=== PATIENT | male | born 1930 | race Caucasian/White ===

== ENCOUNTER 2017-06-03 19:54 | Inpatient (IN) | payer OTHER ==
[2017-06-03] MEDS: AZITHROMYCIN 250 MG TAB PO (21:37)
[2017-06-03] MEDS: SOD CHLORIDE 0.9% 500 ML IV (21:37)
[2017-06-03] MEDS: CEFTRIAXONE 1 GM/50 ML (PMX) 50 ML IVPB (21:37)
[2017-06-03 21:43] LABS: ADD MAN DIFF? NO
[2017-06-03 21:47] LABS: ABNORMAL IP MESSAGE 1; BASOPHIL # 0.1 10^3/ul (0.0-0.1); BASOPHILS % 0.3 % (0.0-2.0); HEMATOCRIT 30.7 % (42.0-52.0); HEMOGLOBIN 10.7 g/dl (14.0-18.0); LYMPHOCYTES # 0.5 10^3/ul (0.8-2.9); LYMPHOCYTES % 2.7 % (15.0-51.0); MEAN CORPUSCULAR HEMOGLOBIN 29.5 pg (29.0-33.0); MEAN CORPUSCULAR HGB CONC 34.9 g/dl (32.0-37.0); MEAN CORPUSCULAR VOLUME 84.6 fl (82.0-101.0); MEAN PLATELET VOLUME 11.1 fl (7.4-10.4); MONOCYTE # 1.5 10^3/ul (0.3-0.9); MONOCYTES % 8.5 % (0.0-11.0); NEUTROPHIL # 15.4 10^3/ul (1.6-7.5); NEUTROPHILS % 87.8 % (39.0-77.0); PLATELET COUNT 191 10^3/UL (140-415); POSITIVE DIFF @See below; RED BLOOD COUNT 3.63 10^6/ul (4.70-6.10); RED CELL DISTRIBUTION WIDTH 13.5 % (11.5-14.5)
[2017-06-03 21:47] LABS: WHITE BLOOD COUNT 17.5 10^3/ul (4.8-10.8)
[2017-06-03 22:08] LABS: INR 1.27; PROTIME 16.1 Sec (11.9-14.9); PT RATIO 1.3
[2017-06-03 22:09] LABS: PARTIAL THROMBOPLASTIN TIME 36.7 Sec (25.0-35.0)
[2017-06-03 22:17] LABS: LACTIC ACID 1.3 mmol/L (0.5-2.0)
[2017-06-03 22:20] LABS: ANION GAP 12 (8-16); BLOOD UREA NITROGEN 40 mg/dl (7-20); CALCIUM 9.1 mg/dl (8.4-10.2); CARBON DIOXIDE 27 mmol/L (21-31); CHLORIDE 93 mmol/L (97-110); CREATININE 1.57 mg/dl (0.61-1.24); GLUCOSE 164 mg/dl (70-220); POTASSIUM 4.2 mmol/L (3.5-5.1); SODIUM 128 mmol/L (135-144)
[2017-06-03 22:30] LABS: B-TYPE NATRIURETIC PEPTIDE 4520 PG/ML (0-450)
[2017-06-03 22:39] LABS: TROPONIN-I 0.168 ng/ml (0.00-0.12)
[2017-06-03] MEDS: SODIUM CHLORIDE 0.9% 1L BAG IV* (22:59)
[2017-06-03] MEDS ORDERED: ASPIRIN 81 MG TAB (23:14)
[2017-06-03] MEDS: ASPIRIN 81 MG TAB PO (23:32)
[2017-06-04 00:13] LABS: BAND NEUTROPHILS #M 1.2 10^3/ul (0.0-0.6); BAND NEUTROPHILS % (M) 7 % (0-4); EOSINOPHILS % (M) 1 % (0-7); GIANT THROMBO% (M) 1 % (0-0); LYMPHOCYTES #M 0.3 10^3/ul (0.8-2.9); LYMPHOCYTES % (M) 2 % (15-51); MONOCYTE #M 0.5 10^3/ul (0.3-0.9); MONOCYTES % (M) 3 % (0-11); PLATELET ESTIMATE NORMAL; SEG NEUT #M 15.4 10^3/ul (1.7-7.5); SEGMENTED NEUTROPHILS (M) % 87 % (39-77); SMUDGE%M 1 % (0-0)
[2017-06-04 00:26] LABS: LACTIC ACID 1.7 mmol/L (0.5-2.0)
[2017-06-04] MEDS ORDERED: ACETAMINOPHEN 325 MG TAB PO (00:30)
[2017-06-04] MEDS ORDERED: ONDANSETRON 4 MG INJ IV (00:30)
[2017-06-04 02:56] LABS: LACTIC ACID 1.2 mmol/L (0.5-2.0)
[2017-06-04] MEDS ORDERED: ALBUTEROL/IPRATROPIUM (NEB) 3 ML AMP NEB ×3 (04:00→05:00)
[2017-06-04] MEDS ORDERED: ALPRAZOLAM 0.25 MG TAB PO (04:00)
[2017-06-04] MEDS ORDERED: IPRATROPIUM (NEB) 0.5 MG/2.5 ML AMP NEB (05:00)
[2017-06-04 05:27] LABS: ADD MAN DIFF? NO
[2017-06-04] MEDS: MAGNESIUM SULFATE 2 GM/50 ML 50 ML IVPB (05:31)
[2017-06-04] MEDS: BUMETANIDE 1 MG INJ IV (05:31)
[2017-06-04] MEDS: GUAIFENESIN/CODEINE 5ML CUP PO (05:32)
[2017-06-04 05:33] LABS: WHITE BLOOD COUNT 17.4 10^3/ul (4.8-10.8)
[2017-06-04 05:33] LABS: ABNORMAL IP MESSAGE 1; BASOPHILS % 0.2 % (0.0-2.0); HEMATOCRIT 31.7 % (42.0-52.0); HEMOGLOBIN 10.5 g/dl (14.0-18.0); LYMPHOCYTES # 0.5 10^3/ul (0.8-2.9); MEAN CORPUSCULAR HEMOGLOBIN 28.7 pg (29.0-33.0); MEAN CORPUSCULAR HGB CONC 33.1 g/dl (32.0-37.0); MEAN CORPUSCULAR VOLUME 86.6 fl (82.0-101.0); MEAN PLATELET VOLUME 11.4 fl (7.4-10.4); MONOCYTE # 1.5 10^3/ul (0.3-0.9); MONOCYTES % 8.9 % (0.0-11.0); NEUTROPHIL # 15.1 10^3/ul (1.6-7.5); NEUTROPHILS % 87.3 % (39.0-77.0); PLATELET COUNT 201 10^3/UL (140-415); POSITIVE DIFF @See below; RED BLOOD COUNT 3.66 10^6/ul (4.70-6.10); RED CELL DISTRIBUTION WIDTH 13.3 % (11.5-14.5)
[2017-06-04] MEDS: ALBUTEROL/IPRATROPIUM (NEB) 3 ML AMP NEB ×3 (05:44→16:07)
[2017-06-04] MEDS: PANTOPRAZOLE (EC) 40 MG TAB PO (06:00)
[2017-06-04] MEDS ORDERED: BUMETANIDE 0.5 MG TAB PO ×2 (06:00)
[2017-06-04] MEDS: ACCU-CHEK XX ×3 (07:25→17:20)
[2017-06-04] MEDS ORDERED: INSULIN ASPART [NOVOLOG] 3 ML PEN SC (07:55)
[2017-06-04] MEDS: FLUTICASONE 0.05% 16 GM NAS SPRAY NASAL (08:20)
[2017-06-04] MEDS: ASPIRIN 81 MG TAB PO (08:21)
[2017-06-04] MEDS: CYANOCOBALAMIN 500 MCG TAB PO (08:21)
[2017-06-04] MEDS: CALCIUM CARBONATE 500 MG CHEW TAB PO ×3 (08:21→17:21)
[2017-06-04] MEDS: DONEPEZIL 10 MG TAB PO (08:21)
[2017-06-04] MEDS: CHOLECALCIFEROL 2,000 UNIT CAP PO (08:21)
[2017-06-04] MEDS: BENAZEPRIL 40 MG TAB PO (08:22)
[2017-06-04] MEDS: ISOSORBIDE MONONITRATE(SR)30 MG TAB PO (08:22)
[2017-06-04] MEDS: LACTOBACILLUS RHAMNOSUS CAP PO ×2 (08:22→21:33)
[2017-06-04] MEDS: INSULIN ASPART [NOVOLOG] 3 ML PEN SC ×3 (08:30→17:26)
[2017-06-04] MEDS: Insulin NOVOLOG SS MILD Algorithm (SS with meals and bedtime) SC ×4 (08:30→21:00)
[2017-06-04] MEDS: INSULIN GLARGINE [LANtus] 3 ML PEN SC (08:30)
[2017-06-04] MEDS ORDERED: DOCUSATE SODIUM 100 MG CAP PO (09:00)
[2017-06-04] MEDS ORDERED: SALMETEROL/FLUTICASONE 250/50 INHA INH (09:00)
[2017-06-04 10:35] LABS: TROPONIN-I 0.106 ng/ml (0.00-0.12)
[2017-06-04] MEDS ORDERED: ALBUTEROL/IPRATROPIUM (NEB) 3 ML AMP HHN (12:00)
[2017-06-04] MEDS: Discontinue current oral sulfonylureas (glyburide, glipizide, and/or glimepiride) prior to XX (12:30)
[2017-06-04 12:48] LABS: CREATINE KINASE 204 IU/L (23-200)
[2017-06-04 14:18] LABS: ANION GAP 14 (8-16); BLOOD UREA NITROGEN 43 mg/dl (7-20); CALCIUM 8.7 mg/dl (8.4-10.2); CARBON DIOXIDE 21 mmol/L (21-31); CHLORIDE 97 mmol/L (97-110); CREATININE 1.45 mg/dl (0.61-1.24); GLUCOSE 247 mg/dl (70-220); MAGNESIUM 2.2 mg/dl (1.7-2.5); POTASSIUM 4.1 mmol/L (3.5-5.1); SODIUM 128 mmol/L (135-144)
[2017-06-04] MEDS: HEPARIN 5,000 UNIT/0.5 ML VIAL SC ×2 (14:50→21:43)
[2017-06-04] MEDS: ATORVASTATIN 20 MG TAB PO (21:31)
[2017-06-04] MEDS: MONTELUKAST 10 MG TAB PO (21:32)
[2017-06-04] MEDS: TERAZOSIN 5 MG CAP PO (21:33)
[2017-06-04] MEDS: CEFTRIAXONE 1 GM/50 ML (PMX) 50 ML IVPB (21:34)
[2017-06-04] MEDS: SERTRALINE 50 MG TAB PO (21:34)
[2017-06-04] MEDS: traZODone 50 MG TAB PO (21:43)
[2017-06-04] MEDS: AZITHROMYCIN 500MG/NS (PMX) 250 ML IV (22:31)
[2017-06-05] MEDS: ALBUTEROL/IPRATROPIUM (NEB) 3 ML AMP NEB ×4 (01:35→23:26)
[2017-06-05] MEDS: ACCU-CHEK XX ×4 (02:00→17:23)
[2017-06-05] MEDS ORDERED: ACCUCHECK AT 2AM (Patients on SS coverage) XX (02:00)
[2017-06-05] MEDS: PANTOPRAZOLE (EC) 40 MG TAB PO (05:18)
[2017-06-05] MEDS: HEPARIN 5,000 UNIT/0.5 ML VIAL SC ×3 (05:21→21:29)
[2017-06-05 06:19] LABS: ADD MAN DIFF? NO
[2017-06-05 06:27] LABS: ABNORMAL IP MESSAGE 1; BASOPHIL # 0.1 10^3/ul (0.0-0.1); BASOPHILS % 0.3 % (0.0-2.0); EOSINOPHILS % 0.2 % (0.0-7.0); HEMATOCRIT 29.9 % (42.0-52.0); HEMOGLOBIN 10.3 g/dl (14.0-18.0); LYMPHOCYTES # 0.7 10^3/ul (0.8-2.9); LYMPHOCYTES % 3.6 % (15.0-51.0); MEAN CORPUSCULAR HEMOGLOBIN 29.4 pg (29.0-33.0); MEAN CORPUSCULAR HGB CONC 34.4 g/dl (32.0-37.0); MEAN CORPUSCULAR VOLUME 85.4 fl (82.0-101.0); MEAN PLATELET VOLUME 11.4 fl (7.4-10.4); MONOCYTE # 1.6 10^3/ul (0.3-0.9); MONOCYTES % 8.7 % (0.0-11.0); NEUTROPHIL # 15.7 10^3/ul (1.6-7.5); NEUTROPHILS % 85.8 % (39.0-77.0); PLATELET COUNT 209 10^3/UL (140-415); POSITIVE DIFF @See below; RED CELL DISTRIBUTION WIDTH 13.6 % (11.5-14.5)
[2017-06-05 06:27] LABS: WHITE BLOOD COUNT 18.3 10^3/ul (4.8-10.8)
[2017-06-05 07:07] LABS: ALANINE AMINOTRANSFERASE 41 IU/L (13-69); ALBUMIN 2.7 g/dl (3.3-4.9); ALBUMIN/GLOBULIN RATIO 0.87; ALKALINE PHOSPHATASE 100 IU/L (42-121); ANION GAP 14 (8-16); ASPARTATE AMINO TRANSFERASE 52 IU/L (15-46); BILIRUBIN,INDIRECT 0.2 mg/dl (0-1.1); BILIRUBIN,TOTAL 0.2 mg/dl (0.2-1.3); BLOOD UREA NITROGEN 43 mg/dl (7-20); CALCIUM 8.7 mg/dl (8.4-10.2); CARBON DIOXIDE 25 mmol/L (21-31); CHLORIDE 96 mmol/L (97-110); CREATININE 1.44 mg/dl (0.61-1.24); GLUCOSE 196 mg/dl (70-220); SODIUM 131 mmol/L (135-144); TOTAL PROTEIN 5.8 g/dl (6.1-8.1)
[2017-06-05 07:07] LABS: PHOSPHORUS 3.5 mg/dl (2.5-4.9)
[2017-06-05 07:12] LABS: CHOL/HDL RATIO 4.7 RATIO; HDL CHOLESTEROL 18 mg/dl (31-75); LDL CHOLESTEROL,CALCULATED 48 mg/dl; TRIGLYCERIDES 93 mg/dl (0-149)
[2017-06-05 07:12] LABS: CHOLESTEROL 85 mg/dl (100-200)
[2017-06-05 07:28] LABS: HEMOGLOBIN A1C 8.5 % (0-5.9)
[2017-06-05] MEDS: ASPIRIN 81 MG TAB PO (08:40)
[2017-06-05] MEDS: CHOLECALCIFEROL 2,000 UNIT CAP PO (08:41)
[2017-06-05] MEDS: FLUTICASONE 0.05% 16 GM NAS SPRAY NASAL (08:41)
[2017-06-05] MEDS: DONEPEZIL 10 MG TAB PO (08:41)
[2017-06-05] MEDS: CYANOCOBALAMIN 500 MCG TAB PO (08:41)
[2017-06-05] MEDS: CALCIUM CARBONATE 500 MG CHEW TAB PO ×3 (08:41→17:35)
[2017-06-05] MEDS: LACTOBACILLUS RHAMNOSUS CAP PO ×2 (08:41→20:42)
[2017-06-05] MEDS: BENAZEPRIL 40 MG TAB PO (08:46)
[2017-06-05] MEDS: ISOSORBIDE MONONITRATE(SR)30 MG TAB PO (08:46)
[2017-06-05] MEDS: Insulin NOVOLOG SS MILD Algorithm (SS with meals and bedtime) SC ×4 (09:24→20:45)
[2017-06-05] MEDS: INSULIN ASPART [NOVOLOG] 3 ML PEN SC ×3 (09:24→18:21)
[2017-06-05] MEDS: INSULIN GLARGINE [LANtus] 3 ML PEN SC (09:24)
[2017-06-05] MEDS ORDERED: VANCOMYCIN IV PER PHARMACY XX (10:30)
[2017-06-05 10:41] LABS: ANISOCYTOSIS 2+ (0-0); BAND NEUTROPHILS % (M) 11 % (0-4); GIANT THROMBO% (M) 1 % (0-0); HYPOCHROMASIA 1+ (0-0); LYMPHOCYTES #M 0.7 10^3/ul (0.8-2.9); LYMPHOCYTES % (M) 4 % (15-51); MICROCYTOSIS 1+ (0-0); MONOCYTE #M 1.2 10^3/ul (0.3-0.9); MONOCYTES % (M) 7 % (0-11); PLATELET ESTIMATE NORMAL; POLYCHROMASIA 3+ (0-0); SEG NEUT #M 14.8 10^3/ul (1.7-7.5); SEGMENTED NEUTROPHILS (M) % 79 % (39-77); SMUDGE%M 1 % (0-0)
[2017-06-05] MEDS ORDERED: DEXTROSE 50% 50 ML SYRINGE IV ×2 (11:30)
[2017-06-05] MEDS ORDERED: GLUCOSE GEL 15 GRAM TUBE PO ×2 (11:30)
[2017-06-05] MEDS ORDERED: GLUCOSE GEL 15 GRAM TUBE BUCCAL (11:30)
[2017-06-05] MEDS ORDERED: GLUCAGON 1 MG INJ IM (11:30)
[2017-06-05] MEDS: VANCOMYCIN 2 GM in DEXTROSE 5% 500 ML IVPB (11:37)
[2017-06-05] MEDS: BUMETANIDE 1 MG INJ IV (11:38)
[2017-06-05] MEDS: FUROSEMIDE 40 MG TAB PO (18:19)
[2017-06-05] MEDS: ATORVASTATIN 20 MG TAB PO (20:41)
[2017-06-05] MEDS: MONTELUKAST 10 MG TAB PO (20:41)
[2017-06-05] MEDS: SERTRALINE 50 MG TAB PO (20:41)
[2017-06-05] MEDS: traZODone 50 MG TAB PO (20:41)
[2017-06-05] MEDS: TERAZOSIN 5 MG CAP PO (20:42)
[2017-06-05] MEDS: GUAIFENESIN/CODEINE 5ML CUP PO (21:06)
[2017-06-05] MEDS: CEFTRIAXONE 1 GM/50 ML (PMX) 50 ML IVPB (21:24)
[2017-06-06] MEDS: ACCU-CHEK XX ×4 (02:00→17:25)
[2017-06-06] MEDS: PANTOPRAZOLE (EC) 40 MG TAB PO (05:22)
[2017-06-06] MEDS: FUROSEMIDE 40 MG TAB PO ×2 (05:22→18:58)
[2017-06-06] MEDS: HEPARIN 5,000 UNIT/0.5 ML VIAL SC ×3 (05:25→22:17)
[2017-06-06 06:38] LABS: ADD MAN DIFF? NO
[2017-06-06 06:43] LABS: BASOPHIL # 0.1 10^3/ul (0.0-0.1); BASOPHILS % 0.3 % (0.0-2.0); EOSINOPHILS % 0.3 % (0.0-7.0); HEMOGLOBIN 9.9 g/dl (14.0-18.0); LYMPHOCYTES # 0.7 10^3/ul (0.8-2.9); LYMPHOCYTES % 4.2 % (15.0-51.0); MEAN CORPUSCULAR HGB CONC 34.1 g/dl (32.0-37.0); MEAN PLATELET VOLUME 11.6 fl (7.4-10.4); MONOCYTE # 1.4 10^3/ul (0.3-0.9); MONOCYTES % 8.9 % (0.0-11.0); NEUTROPHIL # 12.9 10^3/ul (1.6-7.5); NEUTROPHILS % 83.5 % (39.0-77.0); PLATELET COUNT 217 10^3/UL (140-415); POSITIVE DIFF @See below; RED BLOOD COUNT 3.41 10^6/ul (4.70-6.10); RED CELL DISTRIBUTION WIDTH 13.5 % (11.5-14.5)
[2017-06-06 06:43] LABS: WHITE BLOOD COUNT 15.4 10^3/ul (4.8-10.8)
[2017-06-06 07:04] LABS: MAGNESIUM 1.8 mg/dl (1.7-2.5)
[2017-06-06 07:04] LABS: PHOSPHORUS 3.6 mg/dl (2.5-4.9)
[2017-06-06 07:05] LABS: ALANINE AMINOTRANSFERASE 62 IU/L (13-69); ALBUMIN 3.1 g/dl (3.3-4.9); ALBUMIN/GLOBULIN RATIO 0.96; ALKALINE PHOSPHATASE 125 IU/L (42-121); ANION GAP 13 (8-16); ASPARTATE AMINO TRANSFERASE 81 IU/L (15-46); BILIRUBIN,INDIRECT 0.1 mg/dl (0-1.1); BILIRUBIN,TOTAL 0.1 mg/dl (0.2-1.3); BLOOD UREA NITROGEN 40 mg/dl (7-20); CALCIUM 8.6 mg/dl (8.4-10.2); CARBON DIOXIDE 28 mmol/L (21-31); CHLORIDE 94 mmol/L (97-110); CREATININE 1.52 mg/dl (0.61-1.24); GLUCOSE 229 mg/dl (70-220); POTASSIUM 3.5 mmol/L (3.5-5.1); SODIUM 131 mmol/L (135-144); TOTAL PROTEIN 6.3 g/dl (6.1-8.1)
[2017-06-06] MEDS: LACTOBACILLUS RHAMNOSUS CAP PO ×2 (08:38→21:49)
[2017-06-06] MEDS: CALCIUM CARBONATE 500 MG CHEW TAB PO ×3 (08:38→18:58)
[2017-06-06] MEDS: CYANOCOBALAMIN 500 MCG TAB PO (08:39)
[2017-06-06] MEDS: FLUTICASONE 0.05% 16 GM NAS SPRAY NASAL (08:39)
[2017-06-06] MEDS: BENAZEPRIL 40 MG TAB PO (08:39)
[2017-06-06] MEDS: CHOLECALCIFEROL 2,000 UNIT CAP PO (08:39)
[2017-06-06] MEDS: ASPIRIN 81 MG TAB PO (08:39)
[2017-06-06] MEDS: DONEPEZIL 10 MG TAB PO (08:39)
[2017-06-06] MEDS: ISOSORBIDE MONONITRATE(SR)30 MG TAB PO (08:40)
[2017-06-06] MEDS: Insulin NOVOLOG SS MILD Algorithm (SS with meals and bedtime) SC ×4 (08:47→21:00)
[2017-06-06] MEDS: INSULIN ASPART [NOVOLOG] 3 ML PEN SC ×3 (08:48→18:30)
[2017-06-06] MEDS: INSULIN GLARGINE [LANtus] 3 ML PEN SC (08:50)
[2017-06-06] MEDS: ALBUTEROL/IPRATROPIUM (NEB) 3 ML AMP NEB ×2 (09:05→23:27)
[2017-06-06] MEDS: MAGNESIUM SULFATE 2 GM/50 ML 50 ML IVPB (10:07)
[2017-06-06] MEDS: POTASSIUM CHLORIDE (SR) 20 MEQ TAB PO (10:07)
[2017-06-06] MEDS: VANCOMYCIN 1.25 GM in SOD CHLORIDE 0.45% 250 ML IVPB (11:52)
[2017-06-06] MEDS: GUAIFENESIN/CODEINE 5ML CUP PO (15:37)
[2017-06-06] MEDS: traZODone 50 MG TAB PO (21:49)
[2017-06-06] MEDS: SERTRALINE 50 MG TAB PO (21:50)
[2017-06-06] MEDS: MONTELUKAST 10 MG TAB PO (21:50)
[2017-06-06] MEDS: ATORVASTATIN 20 MG TAB PO (21:50)
[2017-06-06] MEDS: TERAZOSIN 5 MG CAP PO (21:50)
[2017-06-06] MEDS: CEFTRIAXONE 1 GM/50 ML (PMX) 50 ML IVPB (21:51)
[2017-06-07] MEDS: GUAIFENESIN/CODEINE 5ML CUP PO ×3 (00:43→21:12)
[2017-06-07] MEDS: ACCU-CHEK XX ×4 (02:00→17:25)
[2017-06-07] MEDS: PANTOPRAZOLE (EC) 40 MG TAB PO (05:51)
[2017-06-07] MEDS: FUROSEMIDE 40 MG TAB PO ×2 (05:52→18:46)
[2017-06-07] MEDS: HEPARIN 5,000 UNIT/0.5 ML VIAL SC ×3 (06:03→21:28)
[2017-06-07 07:08] LABS: ADD MAN DIFF? NO
[2017-06-07 07:09] LABS: BASOPHIL # 0.1 10^3/ul (0.0-0.1); BASOPHILS % 0.4 % (0.0-2.0); EOSINOPHILS # 0.2 10^3/ul (0.0-0.5); EOSINOPHILS % 1.1 % (0.0-7.0); HEMATOCRIT 29.8 % (42.0-52.0); HEMOGLOBIN 10.2 g/dl (14.0-18.0); LYMPHOCYTES # 0.8 10^3/ul (0.8-2.9); MEAN CORPUSCULAR HEMOGLOBIN 29.3 pg (29.0-33.0); MEAN CORPUSCULAR HGB CONC 34.2 g/dl (32.0-37.0); MEAN CORPUSCULAR VOLUME 85.6 fl (82.0-101.0); MEAN PLATELET VOLUME 11.5 fl (7.4-10.4); MONOCYTE # 1.4 10^3/ul (0.3-0.9); MONOCYTES % 10.1 % (0.0-11.0); NEUTROPHIL # 10.8 10^3/ul (1.6-7.5); NEUTROPHILS % 77.7 % (39.0-77.0); PLATELET COUNT 222 10^3/UL (140-415); RED BLOOD COUNT 3.48 10^6/ul (4.70-6.10); RED CELL DISTRIBUTION WIDTH 13.8 % (11.5-14.5)
[2017-06-07 07:09] LABS: WHITE BLOOD COUNT 13.9 10^3/ul (4.8-10.8)
[2017-06-07 07:34] LABS: ANION GAP 14 (8-16); BLOOD UREA NITROGEN 37 mg/dl (7-20); CALCIUM 8.7 mg/dl (8.4-10.2); CARBON DIOXIDE 30 mmol/L (21-31); CHLORIDE 96 mmol/L (97-110); GLUCOSE 141 mg/dl (70-220); POTASSIUM 3.6 mmol/L (3.5-5.1); SODIUM 136 mmol/L (135-144)
[2017-06-07] MEDS: ALBUTEROL/IPRATROPIUM (NEB) 3 ML AMP NEB ×3 (07:55→23:33)
[2017-06-07] MEDS: ASPIRIN 81 MG TAB PO (08:07)
[2017-06-07] MEDS: CHOLECALCIFEROL 2,000 UNIT CAP PO (08:07)
[2017-06-07] MEDS: LACTOBACILLUS RHAMNOSUS CAP PO ×2 (08:07→21:11)
[2017-06-07] MEDS: CALCIUM CARBONATE 500 MG CHEW TAB PO ×3 (08:07→18:46)
[2017-06-07] MEDS: DONEPEZIL 10 MG TAB PO (08:07)
[2017-06-07] MEDS: CYANOCOBALAMIN 500 MCG TAB PO (08:08)
[2017-06-07] MEDS: ISOSORBIDE MONONITRATE(SR)30 MG TAB PO (08:08)
[2017-06-07] MEDS: BENAZEPRIL 40 MG TAB PO (08:08)
[2017-06-07] MEDS: FLUTICASONE 0.05% 16 GM NAS SPRAY NASAL (08:09)
[2017-06-07 08:24] LABS: MAGNESIUM 1.8 mg/dl (1.7-2.5)
[2017-06-07] MEDS: Insulin NOVOLOG SS MILD Algorithm (SS with meals and bedtime) SC ×4 (09:28→21:00)
[2017-06-07] MEDS: INSULIN GLARGINE [LANtus] 3 ML PEN SC (09:28)
[2017-06-07] MEDS: INSULIN ASPART [NOVOLOG] 3 ML PEN SC ×3 (09:36→18:53)
[2017-06-07] MEDS: MAGNESIUM SULFATE 2 GM/50 ML 50 ML IVPB (11:39)
[2017-06-07] MEDS: POTASSIUM CHLORIDE (SR) 20 MEQ TAB PO (11:40)
[2017-06-07] MEDS: VANCOMYCIN 1.25 GM in SOD CHLORIDE 0.45% 250 ML IVPB (12:57)
[2017-06-07] MEDS ORDERED: ACETAMINOPHEN 325 MG TAB PO (17:00)
[2017-06-07] MEDS: SERTRALINE 50 MG TAB PO (21:11)
[2017-06-07] MEDS: TERAZOSIN 5 MG CAP PO (21:11)
[2017-06-07] MEDS: traZODone 50 MG TAB PO (21:11)
[2017-06-07] MEDS: MONTELUKAST 10 MG TAB PO (21:11)
[2017-06-07] MEDS: ATORVASTATIN 20 MG TAB PO (21:11)
[2017-06-08] MEDS: ACCU-CHEK XX ×4 (02:00→17:50)
[2017-06-08 06:17] LABS: ADD MAN DIFF? NO
[2017-06-08 06:27] LABS: WHITE BLOOD COUNT 11.8 10^3/ul (4.8-10.8)
[2017-06-08 06:27] LABS: HEMATOCRIT 29.4 % (42.0-52.0); MEAN CORPUSCULAR HEMOGLOBIN 29.2 pg (29.0-33.0); RED BLOOD COUNT 3.42 10^6/ul (4.70-6.10)
[2017-06-08 06:28] LABS: ABNORMAL IP MESSAGE 1; BASOPHIL # 0.1 10^3/ul (0.0-0.1); BASOPHILS % 0.6 % (0.0-2.0); EOSINOPHILS # 0.2 10^3/ul (0.0-0.5); EOSINOPHILS % 1.6 % (0.0-7.0); LYMPHOCYTES # 0.9 10^3/ul (0.8-2.9); LYMPHOCYTES % 7.5 % (15.0-51.0); MEAN PLATELET VOLUME 11.3 fl (7.4-10.4); MONOCYTES % 8.4 % (0.0-11.0); NEUTROPHIL # 8.9 10^3/ul (1.6-7.5); PLATELET COUNT 219 10^3/UL (140-415); POSITIVE DIFF @See below; RED CELL DISTRIBUTION WIDTH 13.8 % (11.5-14.5)
[2017-06-08] MEDS: PANTOPRAZOLE (EC) 40 MG TAB PO (06:31)
[2017-06-08] MEDS: FUROSEMIDE 40 MG TAB PO ×2 (06:31→18:08)
[2017-06-08] MEDS: HEPARIN 5,000 UNIT/0.5 ML VIAL SC ×3 (06:34→22:04)
[2017-06-08 06:48] LABS: ANION GAP 12 (8-16); BLOOD UREA NITROGEN 38 mg/dl (7-20); CARBON DIOXIDE 29 mmol/L (21-31); CHLORIDE 97 mmol/L (97-110); GLUCOSE 234 mg/dl (70-220); POTASSIUM 3.9 mmol/L (3.5-5.1); SODIUM 134 mmol/L (135-144)
[2017-06-08 07:06] LABS: INR 1.15; PROTIME 14.9 Sec (11.9-14.9); PT RATIO 1.2
[2017-06-08 07:07] LABS: PARTIAL THROMBOPLASTIN TIME 40.1 Sec (25.0-35.0)
[2017-06-08 07:30] LABS: CALCIUM 8.5 mg/dl (8.4-10.2)
[2017-06-08] MEDS: ALBUTEROL/IPRATROPIUM (NEB) 3 ML AMP NEB ×3 (07:31→22:02)
[2017-06-08] MEDS: Insulin NOVOLOG SS MILD Algorithm (SS with meals and bedtime) SC ×4 (08:17→22:05)
[2017-06-08] MEDS: INSULIN ASPART [NOVOLOG] 3 ML PEN SC ×3 (08:17→17:55)
[2017-06-08] MEDS: INSULIN GLARGINE [LANtus] 3 ML PEN SC (08:17)
[2017-06-08 08:18] LABS: PHOSPHORUS 3.9 mg/dl (2.5-4.9)
[2017-06-08] MEDS: CALCIUM CARBONATE 500 MG CHEW TAB PO ×3 (08:33→18:07)
[2017-06-08] MEDS: ASPIRIN 81 MG TAB PO (08:33)
[2017-06-08] MEDS: CYANOCOBALAMIN 500 MCG TAB PO (08:33)
[2017-06-08] MEDS: BENAZEPRIL 40 MG TAB PO (08:33)
[2017-06-08] MEDS: DONEPEZIL 10 MG TAB PO (08:33)
[2017-06-08] MEDS: LACTOBACILLUS RHAMNOSUS CAP PO ×2 (08:34→21:51)
[2017-06-08] MEDS: ISOSORBIDE MONONITRATE(SR)30 MG TAB PO (08:34)
[2017-06-08] MEDS: CHOLECALCIFEROL 2,000 UNIT CAP PO (08:34)
[2017-06-08] MEDS: GUAIFENESIN/CODEINE 5ML CUP PO ×3 (09:53→22:52)
[2017-06-08] MEDS: FLUTICASONE 0.05% 16 GM NAS SPRAY NASAL (09:53)
[2017-06-08 12:10] LABS: VANCOMYCIN,TROUGH 12.4 ug/ml (10.0-20.0)
[2017-06-08] MEDS: LIDOCAINE 1% (MPF) 5 ML VIAL SC (12:20)
[2017-06-08] MEDS: VANCOMYCIN 1.25 GM in SOD CHLORIDE 0.45% 250 ML IVPB (13:25)
[2017-06-08] MEDS ORDERED: POLYETHYLENE GLYCOL 17 GM PACKET PO (14:00)
[2017-06-08] MEDS ORDERED: BISACODYL 10 MG SUPP PR (14:00)
[2017-06-08] MEDS ORDERED: MAGNESIUM HYDROXIDE 30ML CUP PO (14:00)
[2017-06-08] MEDS: DOCUSATE SODIUM 100 MG CAP PO ×2 (14:32→21:49)
[2017-06-08] MEDS: traZODone 50 MG TAB PO (21:49)
[2017-06-08] MEDS: MONTELUKAST 10 MG TAB PO (21:49)
[2017-06-08] MEDS: ATORVASTATIN 20 MG TAB PO (21:51)
[2017-06-08] MEDS: TERAZOSIN 5 MG CAP PO (21:51)
[2017-06-08] MEDS: SERTRALINE 50 MG TAB PO (21:51)
[2017-06-09] MEDS: ACCU-CHEK XX ×2 (02:00→07:25)
[2017-06-09] MEDS: PANTOPRAZOLE (EC) 40 MG TAB PO (06:34)
[2017-06-09] MEDS: FUROSEMIDE 40 MG TAB PO (06:35)
[2017-06-09] MEDS: HEPARIN 5,000 UNIT/0.5 ML VIAL SC (06:52)
[2017-06-09] MEDS: Insulin NOVOLOG SS MILD Algorithm (SS with meals and bedtime) SC (08:12)
[2017-06-09] MEDS: INSULIN ASPART [NOVOLOG] 3 ML PEN SC (08:16)
[2017-06-09] MEDS: INSULIN GLARGINE [LANtus] 3 ML PEN SC (08:17)
[2017-06-09] MEDS: FLUTICASONE 0.05% 16 GM NAS SPRAY NASAL (08:20)
[2017-06-09] MEDS: CALCIUM CARBONATE 500 MG CHEW TAB PO (08:21)
[2017-06-09] MEDS: ASPIRIN 81 MG TAB PO (08:21)
[2017-06-09] MEDS: CHOLECALCIFEROL 2,000 UNIT CAP PO (08:21)
[2017-06-09] MEDS: LACTOBACILLUS RHAMNOSUS CAP PO (08:21)
[2017-06-09] MEDS: CYANOCOBALAMIN 500 MCG TAB PO (08:21)
[2017-06-09] MEDS: ISOSORBIDE MONONITRATE(SR)30 MG TAB PO (08:22)
[2017-06-09] MEDS: DONEPEZIL 10 MG TAB PO (08:22)
[2017-06-09] MEDS: BENAZEPRIL 40 MG TAB PO (08:24)
[2017-06-09] MEDS: DOCUSATE SODIUM 100 MG CAP PO (08:24)
[2017-06-09] MEDS: GUAIFENESIN/CODEINE 5ML CUP PO (08:25)
[2017-06-09 08:41] LABS: ADD MAN DIFF? NO
[2017-06-09 08:50] LABS: ABNORMAL IP MESSAGE 1; BASOPHIL # 0.1 10^3/ul (0.0-0.1); BASOPHILS % 0.4 % (0.0-2.0); EOSINOPHILS # 0.2 10^3/ul (0.0-0.5); HEMATOCRIT 29.7 % (42.0-52.0); HEMOGLOBIN 9.7 g/dl (14.0-18.0); LYMPHOCYTES # 0.9 10^3/ul (0.8-2.9); LYMPHOCYTES % 7.4 % (15.0-51.0); MEAN CORPUSCULAR HEMOGLOBIN 28.3 pg (29.0-33.0); MEAN CORPUSCULAR HGB CONC 32.7 g/dl (32.0-37.0); MEAN CORPUSCULAR VOLUME 86.6 fl (82.0-101.0); MONOCYTE # 0.9 10^3/ul (0.3-0.9); MONOCYTES % 7.7 % (0.0-11.0); NEUTROPHIL # 8.8 10^3/ul (1.6-7.5); PLATELET COUNT 221 10^3/UL (140-415); POSITIVE DIFF @See below; RED BLOOD COUNT 3.43 10^6/ul (4.70-6.10); RED CELL DISTRIBUTION WIDTH 13.5 % (11.5-14.5)
[2017-06-09 08:50] LABS: WHITE BLOOD COUNT 11.5 10^3/ul (4.8-10.8)
[2017-06-09] MEDS: ALBUTEROL/IPRATROPIUM (NEB) 3 ML AMP NEB (09:02)
[2017-06-09 09:15] LABS: ANION GAP 12 (8-16); BLOOD UREA NITROGEN 33 mg/dl (7-20); CALCIUM 8.4 mg/dl (8.4-10.2); CARBON DIOXIDE 30 mmol/L (21-31); CHLORIDE 95 mmol/L (97-110); CREATININE 1.41 mg/dl (0.61-1.24); GLUCOSE 265 mg/dl (70-220); POTASSIUM 3.9 mmol/L (3.5-5.1); SODIUM 133 mmol/L (135-144)
[2017-06-09 09:25] LABS: PHOSPHORUS 3.8 mg/dl (2.5-4.9)
[2017-06-09 09:25] LABS: MAGNESIUM 1.6 mg/dl (1.7-2.5)
[2017-06-09 11:44] LABS: BAND NEUTROPHILS #M 0.8 10^3/ul (0.0-0.6); BAND NEUTROPHILS % (M) 7 % (0-4); EOSINOPHILS % (M) 3 % (0-7); GIANT THROMBO% (M) 1 % (0-0); LYMPHOCYTES #M 0.5 10^3/ul (0.8-2.9); LYMPHOCYTES % (M) 5 % (15-51); METAMYELOCYTES #M 0.1 10^3/ul (0.0-0.0); METAMYELOCYTES %M 1 % (0-0); MONOCYTE #M 0.4 10^3/ul (0.3-0.9); MONOCYTES % (M) 4 % (0-11); PLATELET ESTIMATE NORMAL; POLYCHROMASIA 1+ (0-0); REACTIVE LYMPHOCYTES #M 0.2 10^3/ul (0.0-0.0); REACTIVE LYMPHOCYTES% (M) 2 % (0-0); SEG NEUT #M 8.9 10^3/ul (1.7-7.5); SEGMENTED NEUTROPHILS (M) % 77 % (39-77)
== END 2017-06-09 11:07 | DRG 189 ==
LOC: TEL 06-04 02:18 → E/R 19:54 → TEL 06-04 00:23
PROVIDERS: Hospitalist
PROC: 02HV33Z Insertion of Infusion Device into Superior Vena Cava, Percutaneous Approach (ICD-10-PCS; principal; 2017-06-08)
DX: J96.01 Acute respiratory failure with hypoxia (principal); R65.11 Systemic inflammatory response syndrome (SIRS) of non-infectious origin with acute organ dysfunction; J18.9 Pneumonia, unspecified organism; I50.43 Acute on chronic combined systolic (congestive) and diastolic (congestive) heart failure; N17.9 Acute kidney failure, unspecified; F03.90 Unspecified dementia, unspecified severity, without behavioral disturbance, psychotic disturbance, mood disturbance, and anxiety; E11.9 Type 2 diabetes mellitus without complications; I11.0 Hypertensive heart disease with heart failure; B95.62 Methicillin resistant Staphylococcus aureus infection as the cause of diseases classified elsewhere; E87.1 Hypo-osmolality and hyponatremia; I25.5 Ischemic cardiomyopathy; Z95.1 Presence of aortocoronary bypass graft; E78.5 Hyperlipidemia, unspecified; I25.10 Atherosclerotic heart disease of native coronary artery without angina pectoris; K21.9 Gastro-esophageal reflux disease without esophagitis; N40.0 Benign prostatic hyperplasia without lower urinary tract symptoms; E66.9 Obesity, unspecified; Z68.37 Body mass index [BMI] 37.0-37.9, adult; Z95.810 Presence of automatic (implantable) cardiac defibrillator; Z79.82 Long term (current) use of aspirin; Z79.4 Long term (current) use of insulin
CPT/HCPCS: 36415; 36569; 71045; 76775; 76937; 80048; 80053; 80061; 80202; 82550; 82553; 82962; 83036; 83605; 83735; 83880; 84100; 84484; 85025; 85610; 85730; 87040; 87075; 87400; 93005; 93306; 94640; 96374; 97163; 97166; 99291-25